=== PATIENT | male | born 1975 ===

== ENCOUNTER 2017-08-06 13:32 | Inpatient (IN) | payer MEDICAID, OTHER ==
--- NOTE | 2017-08-06 15:30 | NUR ---
NURSE ADMISSION NOTE: Pt is a 42 yo male who is developmentally disabled, hx of schizophrenia under the care of [facility]. The pt was brought to [facility] on 08/05/17, by KARLEE for making statements at home about suicide with his father's gun, which is locked up. Pt has been living with parents and it is reported that he has been off of his medication. The reports are differing as to the length of time, several days or three months. The family states he has had escalating behavior. Pt denies SI, HI, anxiety, depression, AH VH. Pt is calm and cooperative. Pt was admitted onto the unit at 1745, admission completed, oriented to unit, and assigned room and Pt ate dinner. Pt is PAZ on 72 hr hold.
[2017-08-06] MEDS ORDERED: Magnesium Hydroxide 10 mL Oral Concentration PO PRN (20:10)
[2017-08-06] MEDS ORDERED: Alum-Mag Hydrox-Simeth 30 mL Suspension PO PRN (20:15)
[2017-08-06] MEDS ORDERED: LORazepam 1 mg Tablet PO PRN (20:15)
[2017-08-06] MEDS ORDERED: Benzocaine-Menthol Lozenge 2/Pkg PO PRN (20:15)
--- NOTE | 2017-08-06 21:09 | NUR ---
Medication Note: When Pt was given HS Seroquel, Pt tried to hide the pills in his hand then dropped on the bed when staff saw them. Pt then took the medication with staff checking for cheeking. Pt monitored q15 min for safety, location and accountability.
--- NOTE | 2017-08-07 04:48 | NUR ---
nursing, nights, 11-7 s/o- has appeared to sleep after 0 during q 15 minute assessments. a- no apparent distress. p- monitor behavior/emotional state, quality, times and amount of sleep, use and effect of medication. shana
[2017-08-07 13:41] VITALS: BP 132/85; PULSE 104; RESP 16
--- NOTE | 2017-08-07 13:49 | HP ---
[address] [address] HISTORY AND PHYSICAL PATIENT: LARISA LOPEZ : 1975 MR#: [id number] ADMIT: 08/06/2017 JOB ID: [id number] IDENTIFICATION OF PATIENT: The patient is a 42-year-old male who reportedly was admitted via transfer from [facility] in [place] with noted identification of PAZ status due to status of grave disability. The patient reportedly has a long-term previous history of diagnosis of paranoid schizophrenia and per family report has refused to continue with medication interventions. CHIEF COMPLAINT: "I am willing to restart my medications and I will continue to follow up with my people." HISTORY OF PRESENT ILLNESS: As stated above the patient is a 42-year-old male who reportedly has a preexisting history of paranoid schizophrenia. Within the past month the patient reportedly had elected to discontinue his medications per family report and has had significant decompensation of care of self, increasing difficulties with paranoia, hallucinations, and threatened recently to hurt himself with a weapon. He reports that he is willing to reinitiate medications and will continue with his outpatient providers of prior. The patient reportedly has a prior history, and I have reviewed records from [facility], with hospitalization and requirements of medications in the past including Haldol and Clozaril. He is currently dispensed Seroquel most recent prescription was written as 300 mg at bedtime. However, the patient has declined and is on a reinitiation of medications, given 50 mg last evening. In meeting with myself the patient was quite paranoid, actively experiencing responses to internal stimulus. He made intermittent eye contact. He openly admitted to hearing voices. He denied any evidence of current suicidal ideation, intent, or plan, and agreed to continue with his medications with the intent to follow up with his care providers. I have discussed the possibility of initiation of an LR 90 with continuation of care through [facility]. The patient has agreed. PAST MEDICAL HISTORY: ALLERGIES: Substantial for no reported allergies. MEDICATIONS: Medications of current include Seroquel 300 mg q.h.s., however the patient discontinued medications and has agreed to reinitiate with his current hospitalization. There is no other medical history noted. I reviewed records from previous with no indication of ongoing or preexisting medical condition. PAST PSYCHIATRIC HISTORY: Substantial for the above information. SOCIAL HISTORY: Currently patient lives at home with his biological mother and father, sibling brother. 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 He reports that he did attend high school up until the 11th grade in [place] but did not graduate. He has no GED. He has never been . He reportedly has not worked since 2009. Abuse history was not reviewed. FAMILY HISTORY: Unknown. DEVELOPMENTAL HISTORY: As noted above. MENTAL STATUS EXAMINATION: General appearance: The patient was cooperative polite, but reserved and guarded. He made intermittent eye contact. He does appear to be responding to internal stimulus throughout the course of interview and openly admitted to hearing voices. His speech was minimal and concrete. His mood was neutral. Affect was guarded. Thought process shows evidence of loose and disorganized thinking, some evidence of tangential thought, and possible thought insertion. He identified at times he believes that people are controlling his thoughts. Thought content: He denied any evidence of current suicidal, homicidal ideation. He reportedly has made reference to family members about purchasing a weapon but has no weapons in the home environment. He admitted to auditory hallucinations. He does appear to be responding to internal stimulus throughout. There is evidence of visual tracking with probable visual hallucinations as well. He was alert, oriented to person, place, and time. His attention and concentration are minimal. Insight and judgment are poor. IMPRESSION: [place] I: 1. Schizophrenia, paranoid type. 2. Learning disability, not otherwise specified, by history. [place] II: Intellectual disability, mild to moderate. [place] III: None. [place] IV: Stressors are noted for significant history of mental health issues, recent refusal of medications. [place] V: Global Assessment of Functioning of 35. PLAN: 1. Recommendations for applications of LR 90 with release and return to his outpatient care providers. 2. Continuation of Seroquel 50 mg at bedtime with titration to follow. 3. Continuation of supportive care as noted with nursing staff.
--- NOTE | 2017-08-07 18:06 | NUR ---
[id number]. nurs. S: "I ate" O: Pt either in bedrm, or out on unit, did not participate in program but appeared reasonable comfortable, not making any distressed sounds. Pt not communicative with this staff , beyond above comment, pt did confirm having AHs with Dr. Pt frequently pulls shirt over his nose or covers mouth and nose with hand appears to be mumbling to self at times. Pt staring tapping thumbs together and does not want to engage. Pt eating meals no shower today. Pt has attempted to hide and not take meds last night and reportedly in past at home to check for med diversion. P:CNCP
--- NOTE | 2017-08-07 18:30 | NUR ---
[facility] Day Shift Pt maintains behavior control throughout the shift. Pt affect appears mostly flat, blunt. Pt spends most of the shift resting in his room or sitting quietly in the dining room. Pt is not social with staff or peers, and limits interactions to very brief, one-two sentence engagements. Pt appears internally preoccupied, occasionally mumbling to himself and moving in subtle, bizarre ways while seated in the dining room. Pt attended community meeting in the AM, but was unable to attend group activities. Pt attended all meals and ate approx 100% of all meals.
--- NOTE | 2017-08-08 04:43 | NUR ---
nursing, nights, 11-7 s- is it breakfast yet ? o- has appeared to sleep after 2245. up briefly at 0416 and easily returned to sleep. assessed q 15 minutes. a- no apparent distress. p- monitor behavior/emotional state, quality, times and amount of sleep, use and effect of medication. shana
--- NOTE | 2017-08-08 05:39 | NUR ---
Nursing Note Paint Spray Tender 7pm-7am Patient was in dining room at start of shift. Stayed in dining room for evening snack. He was calm and cooperative. Patient was compliant with evening meds, with no attempts at cheeking or hiding medications. After taking evening meds, patient remained in common area watching tv, went to room and was noted to be asleep at 2245. Patient slept 7.25 hours. Pt monitored q 15 minutes for safety, location and accountability.
[2017-08-08 10:39] VITALS: BP 130/80; PULSE 88; RESP 16
--- NOTE | 2017-08-08 13:35 | NUR ---
[facility] Day Shift Pt affect and behavior mostly unchanged from previous shifts. Pt maintains behavior control throughout the shift. Pt affect appears mostly flat, blunt. Pt spends most of the shift resting in his room or sitting quietly in the dining room. Pt is not social with staff or peers, and limits interactions to very brief, one-two sentence engagements. Pt appears internally preoccupied, occasionally mumbling to himself and moving in subtle, bizarre ways while seated in the dining room. Pt appeared to have a dramatic, violent coughing fit in the AM, but denied the need for intervention. Pt attended all meals and ate approx 100% of all meals.
--- NOTE | 2017-08-08 16:53 | NUR ---
Burglar Alarm Installer/Counselor: S/O: Patient slept 7.25 hours last night per staff. Patient denies S/I and H/I. He reports hearing voices. He denies visual hallucinations. This abstract writer spoke with Katlyn at [facility], , and they will help coordinate transportation and assist with discharge planning upon time of patient discharge. A: Patient is cooperative, disorganized, tangential, responding to internal stimuli, poor insight, poor judgment. P: Follow the care plan, coordinate with out-patient providers.
--- NOTE | 2017-08-08 17:37 | NUR ---
Nursing Note [id number] S: "I do hear voices". "They tell me things". O: Patient unable/unwilling to elaborate on what his voices say, but giggles several times as he was talking about them. Patient coughing loudly intermittently, one time falling to the floor making gagging noises. Patient reporting he has a tickle in his throat. Denies sore throat. Patient restless, and pacing. Appears in distress at times. Holding/pulling the hair on top of his head. Reporting neck pain/soreness, but refusing medication or ice bag. Patient reports anxiety, depression, pain, voices, but unable to rate. Denies SI/HI. Responding to internal stimuli. A: Anxious, restless, guarded, reserved and disorganized. P: Monitor for safety and response to treatment. Follow plan of care. Addendum: 08/08/17 at 1738 by REGINALD VALENCIA RN PRN's Vistaril 50 mg po for anxiety, patient unable to rate. Minimally effective, no change hair pulling/restlessness.
--- NOTE | 2017-08-08 21:44 | NUR ---
behavior: pt. in dining room, pulls shirt over his mouth while talking. Pt. talked about [employer] game and liking the [employer], smiled stated "nice talking to you". pt. took his meds cooperatively.
[2017-08-09 08:00] VITALS: BP 145/91; PULSE 82; RESP 17
--- NOTE | 2017-08-09 13:13 | PROG NOTE ---
[address] [address] PROGRESS NOTE PATIENT: LARISA LOPEZ : 1975 MR#: [id number] ADMIT: 08/06/2017 JOB ID: [id number] DATE: 08/08/2017 CHIEF COMPLAINT: "I don't know if my mom will let me come back home." HISTORY OF PRESENT ILLNESS: As stated above, the patient met with myself and his attorney recruiter to discuss disposition planning. I have recommended applications for LR 90 and the patient has been consistently agreeable with myself; however, with the attorney recruiter he showed some reluctance to engage, was unable to repeat the stipulations as agreed, and showed significant evidence of elevated anxiety. I attempted to intervene and the patient did have difficulties which continued, with putting his head down on the table, openly stating that he does not understand, and becoming increasingly frustrated. I do see this as a reflection of his limitations of cognition with noted prior history of a diagnosis of alcohol syndrome and presumption of mental retardation. The patient reportedly has had consistent services since youth and did not formally graduate from high school. The patient shows significant limited developmental features with noted impairment of social skills, limited ability to repeat sequential information, and over-activation with distraction. He has been medication compliant at this time with administration of Seroquel 100 mg q.h.s. and Vistaril 50 mg q.4 h. for anxiety last dose at 2 p.m. yesterday. He has not utilized any p.r.n. doses of Seroquel since his admission. I have discussed with the treatment team the intent of applying for LR 90 with the hope and purpose of initiating case assistant which could pursue additional resources including updated assessment of psychological functioning and cognitive functioning with possibilities of applications for an MR waiver and additional DD services. In addition, out-of-home placement certainly could be warranted based on his significant difficulties with the family unit. OBJECTIVE: On mental status exam, as noted above the patient was quite anxious on approach with his attorney recruiter. He verbally identified that he was confused, did not understand, and was unable to calm even with my interventions. This is a noted contrast of previous encounters with myself the day before in which he was very understanding and cooperative with the recommendations of a LR 90. His speech was hesitant. His affect was elevated. His mood was anxious. He denied any evidence of suicidal, homicidal ideation. He denied any evidence of acute hallucinations or delusions. He was alert, oriented to person only. His insight and judgment were deemed poor. PHYSICAL EXAMINATION: Vital signs of current: Temperature is 36.2, pulse 82, respirations 17, BP 145/91. MEDICATION REVIEW: Includes Seroquel 100 mg q.h.s., Vistaril 50 mg q.4 h. p.r.n., Seroquel 50 mg q.4 h. p.r.n. for agitation. ASSESSMENT: [place] I: 1. Schizophrenia, paranoid type, by history. 2. Learning disability, not otherwise specified, by history. [place] II: Intellectual disability, mild to moderate. [place] III: alcohol syndrome by history. [place] IV: Stressors were noted for chronic mental health issues, cognitive impairment, recent refusal of medications. [place] V: Global Assessment of Functioning of current 35. PLAN: 1. Recommendations for continuance of hearing with LR 90 hearing scheduled on Friday. 2. Recommendations for continuation of all medications noted. 3. Continuation of supportive care. 4. Initial plan of discharge to the family unit failed due to limited contact with the individuals at this time. I have agreed with the treatment team to continue his hospitalization, but do see the patient is a vulnerable adult and staff have been alerted about safety concerns for this individual. Ideally in the future he should not be a candidate for admission to a psychiatric unit due to the significant impairment and this will be forwarded to his discharge planning and followup team.
--- NOTE | 2017-08-09 13:19 | PROG NOTE ---
[address] [address] PROGRESS NOTE PATIENT: LARISA LOPEZ : 1975 MR#: [id number] ADMIT: 08/06/2017 JOB ID: [id number] DATE: 08/09/2017 CHIEF COMPLAINT: "I like it here. The people are nice." HISTORY OF PRESENT ILLNESS: As stated above the patient openly identified that he is feeling comfortable on the unit. He was seen out in the Day Area consistently yesterday afternoon. He at times does return to his room when he is tired. He made intermittent eye contact with myself initially in group activities but was able to converse openly with myself later. Per staff report, the patient remains anxious, guarded, and at times disorganized. He was given doses of Vistaril yesterday afternoon for some heightened levels of anxiety. Contact has been made with Katlyn at [facility] and they are assisting in transportation and discharge planning on Friday. OBJECTIVE: On mental status exam, the patient was cooperative, polite. He does show some evidence of hyperkinesis at times but he is redirectable. He denies any evidence of acute distress. His speech was of normal tone, frequency, and volume. His mood is mildly anxious. His affect is congruent. His thought process showed no evidence of racing thoughts, flight of ideas, loose or disorganized thinking. Thought content: Denied any evidence of suicidal, homicidal ideation. No evidence of paranoia. He denies any evidence of current auditory or visual hallucinations; however, he did admit to nursing staff with no definition that he hears voices that tell him to do things. He was alert, oriented to person, place. His attention and concentration intact. Insight and judgment are poor. PHYSICAL EXAMINATION: Vital signs of current: Temperature is 36.2, pulse is 82, respirations 17, BP 145/91. MEDICATION REVIEW: Includes Seroquel 100 mg q.h.s., as well as p.r.n. doses of 50 mg q.4 h. for agitation. He has not received any at this time. Vistaril 50 mg q.4 h. p.r.n., which he received yesterday afternoon. ASSESSMENT: [place] I: 1. Schizophrenia, paranoid type by history. However, this is questionable at this time. 2. Learning disability, not otherwise specified. [place] II: Intellectual disability, mild to moderate. [place] III: alcohol syndrome. [place] IV: Stressors are noted for chronic history of mental health issues, refusal of medications, cognitive impairment. [place] V: Global Assessment of Functioning of current 37. PLAN: 1. Recommendations for continuation of supportive care. 2. Continuation of all medications noted. 3. Recommendations for plan of discharge on Friday with applications filed for LR 90. If the court is unwilling to implement, the patient will be discharged with recommendations of followup interventions including reassessment of cognitive functioning, possibilities of applications for MR waiver.
--- NOTE | 2017-08-09 16:27 | NUR ---
Instructor Substitute Cosmetology/Counselor S/O: Patient has been out on the unit, watching movies and interacting with other staff. When approached, patient becomes euphoric, laughing uncontrollably. Patient pulls shirt over his mouth when talking. Patient did participate in groups. A: Patient is mostly cooperative, disorganized, tangential, responding to internal stimuli, poor insight, poor judgment. P: Follow care plan and coordinate with outpatient providers.
--- NOTE | 2017-08-09 16:41 | NUR ---
Observations 0700 to 1900 Pt attended and participated in community meeting. Pt attended recreational activities. Pt ate a snack. Pt spends free time in common areas watching TV and interacting with peers. Pts affect is euphoric and he is difficult to converse with. Pt maintained behavioral control. Breakfast: 100%. Lunch: 100%. Staff completed 15 min close observations as ordered.
--- NOTE | 2017-08-09 17:49 | NUR ---
Nursing Note [id number] S: "I want to take my medications so I can get better". "I would like to get a job and live on my own again". O: Patient visible on unit, interacting with a new male patient. Patient seems distracted at times and loses his train of thought mid-sentence, laughs intermittently at inappropriate times, but denies auditory hallucinations. Reports anxiety-unable to rate. A: Restless, appears internally preoccupied, tangential, disorganized and cooperative. P: Monitor for safety and response to treatment. Follow plan of care.
--- NOTE | 2017-08-09 21:33 | NUR ---
NIGHT NURSE NOTE [id number]: Pt was watching TV at the beginning of the shift, with several peers. Pt kept the neckline of his shirt in his mouth and frequently pulls on the top of his hair. Pt appropriately asked for HS meds, then stayed up for snack. Pt monitored q15 min for safety, location and accountability.
[2017-08-10 09:57] VITALS: BP 138/88; PULSE 107; RESP 14
--- NOTE | 2017-08-10 14:21 | PROG NOTE ---
[address] [address] PROGRESS NOTE PATIENT: LARISA LOPEZ : 1975 MR#: [id number] ADMIT: 08/06/2017 JOB ID: [id number] DATE: 08/10/2017 CHIEF COMPLAINT: "I am having a good day, I have got a good friend." This is per patient report. HISTORY OF PRESENT ILLNESS: As stated above, the patient was seen in the day area sitting with male peer. He reportedly continues to participate in group activities and has shown no evidence of agitation or concerns of imminent danger to self or others. The patient is aware that we are attempting to consolidate a plan for discharge early next week with aftercare including LR 90 through a local [facility] in [place]. The patient reports that he has been cooperating with medication administration. He has continued with doses of Seroquel 100 mg q.h.s., and shows continuation of significant developmental delay and limited social understanding. OBJECTIVE: On mental status exam, he was bright, cooperative, interactive. He maintained good eye contact. His speech is of normal tone, frequency, and volume. His mood is neutral. Affect was congruent. His thought process showed no evidence of racing thoughts, flight of ideas, loose or disconnected thinking. Thought content: No evidence of suicidal or homicidal ideation. No evidence of paranoia. No evidence of hallucinations or delusions. He was alert, oriented to time and place. Attention and concentration intact. Insight and judgment are poor. PHYSICAL EXAM: Vital signs of current: Temperature is 36.3, pulse 107, respirations 14, BP 138/88. MEDICATION REVIEW: Includes: 1. Seroquel 100 mg q.h.s. 2. Vistaril 50 mg q.4 h. p.r.n. anxiety, last dose on the at 2 p.m. ASSESSMENT: [place] I. 1. Schizophrenia, paranoid type by history. 2. Learning disability, not otherwise specified. [place] II. Intellectual disability, moderate to severe. [place] III. alcohol syndrome. [place] IV. Stressors are noted for disposition planning, limited services in the outpatient sector. [place] V. Global Assessment of Functioning current 35. PLANS: 1. Recommendations for proceeding into LR 90 with plan of discharge on [place] with continuation of outpatient access of care. 2. Continuation of all medications. MTDD
--- NOTE | 2017-08-10 15:14 | NUR ---
Health Program Manager/Counselor S:"I am good." O: Patient denies any SI or HI, no AVH, and did not rate anxiety or depression. Patient participated in group briefly. He has bitten holes into the neckline of his t-shirt. Patient appears to have made friends with another patient on the unit. A:Patient is easily distracted by other patients. He is disorganized, internally preoccupied, labile. P:Follow care plan and coordinate with outpatient providers.
--- NOTE | 2017-08-10 16:41 | NUR ---
Observations 0700 - 1900 Pt affect and mood was flat, guarded, withdrawn and childlike. Pt was out of his room most of the shift. Pt was pleasant, polite and cooperative when approached. Pt maintained behavior throughout the shift. Pt attended meals in D.R. and ate 100% of his meals. Pt ate snack. Pt attended unit activities and played wii with peers. Pt attended community meeting and set a daily goal. Pt was social with select peers. Pt did some writing while sitting at the table in D.R. Pt was observed every 15 minutes through the shift as ordered.
--- NOTE | 2017-08-10 16:58 | NUR ---
Nursing Note [id number] S: "I want to be like that-I want to make good choices". O: Patient continues to be visible on unit. Interacting appropriately with staff and peers. Patient appears more focused, and organized, able to have a conversation and complete his thoughts. Continues to giggle at in appropriate times-but this too is decreasing in frequency. Patient noting erratic behavior of a new patient on unit, stating he doesn't make sense. A: Brighter affect, making future plans, increased eye contact, appropriate, insight improving. P: Monitor for safety and response to treatment. Follow plan of care.
--- NOTE | 2017-08-11 05:44 | NUR ---
Nursing Note Cutter Barrel Drum 7pm-7am Patient out in common area watching a movie and evening snack. Calm and cooperative with staff. Patient was compliant with evening medications. He finished the movie and went to his room. Patient was noted to be in bed asleep at 2215 and through the rest of the night. Pt monitored q 15 minutes for safety, location and accountability.
[2017-08-11 11:55] VITALS: BP 122/79; PULSE 101; RESP 16
--- NOTE | 2017-08-11 14:04 | NUR ---
Observations 0700 - 1900 Pt affect and mood was same as previous days but a little brighter and more social. Pt was out of his room most of the shift. Pt was pleasant, polite and cooperative when approached. Pt maintained behavior throughout the shift. Pt attended meals in D.R. and ate 100% of his meals. Pt ate snack. Pt attended unit activities. Pt set a daily goals 1. take a shower 2. talk to Mom. Pt was social with select peers. Pt talked w public works manager for about an hour regarding court tomorrow. Pt was observed every 15 minutes through the shift as ordered.
--- NOTE | 2017-08-11 15:41 | PROG NOTE ---
[address] [address] PROGRESS NOTE PATIENT: LARISA LOPEZ : 1975 MR#: [id number] ADMIT: 08/06/2017 JOB ID: [id number] DATE: 08/11/2017 CHIEF COMPLAINT: "So, I get to go home tomorrow." This is per patient report. HISTORY OF PRESENT ILLNESS: As stated above, the patient did identify that he is hoping that he can be discharged and I have confirmed that the intent is to file for LR 90 with plan of discharge. Conversations have been held via case planner with contact with [facility], which was previously connected with the patient's care. It is my understanding that they are coordinating a possible plan of transition and transfer with discharge planning. OBJECTIVE: On mental status exam, he continues to be very child-like and needs redirection at times. His speech is of normal tone, frequency, and volume. His mood is neutral. Affect was congruent. His thought process showed no evidence of racing thoughts, flight of ideas, loose or disconnected thinking. Thought content: He denied any evidence of current suicidal, homicidal ideation. No evidence of active hallucinations, delusions. He was alert, oriented to time and place. Attention and concentration intact. Memory intact in the short term, buttermaker, recent. Insight and judgment are fair. PHYSICAL EXAM: Vital signs, current: Temperature is 36.5, pulse 101, respirations 16, BP 122/79. MEDICATION REVIEW: Includes: 1. Seroquel 100 mg q.h.s. 2. Seroquel 50 mg q.4 h. p.r.n. 3. Vistaril 50 mg q.4 h. p.r.n. ASSESSMENT: [place] I. Learning disability, not otherwise specified. [place] II. Intellectual disability, moderate/severe. [place] III. alcohol syndrome. [place] IV. Stressors are noted for long-term disposition planning including applications for [facility] bhatt. Limited services in the outpatient sector. [place] V. Global Assessment of Functioning current 35. PLAN: 1. Recommendations for proceeding to LR 90 with plan of discharge on Friday with continuation of outpatient care with [facility]. 2. Recommendations for updated comprehensive neuropsychological evaluation with strong evidence to support limited functioning capabilities. Re-evaluation for DD MR waiver certainly should be pursued; however, this will be deferred to outpatient followup. 3. Continuation of Seroquel 100 mg q.h.s. and 50 mg p.r.n. due to the patient's significant history of disruptive behavior in the past.
--- NOTE | 2017-08-11 16:49 | NUR ---
Retail Receiving Clerk/Counselor S/O: Patient denies any SI or HI, no AVH. Becomes distracted and starts laughing. A:Patient is still easily distracted by other patients, and is very disruptive when he sees staff speaking to other patients. He is disorganized, internally preoccupied, labile. P:Follow care plan and coordinate with outpatient providers.
--- NOTE | 2017-08-11 18:09 | NUR ---
Nursing Dayshift: S: "That's so funny!" O: Patiently easily laughing with peers today. At times will laugh inappropriately when a peer is stating that it was not funny. Generally pulls his shirt-neck over his mouth when laughing. Approachable. Good appetite at meals and snacks. Has been out of his room much of the day. A: Social. Compliant. P: CPOC. Monitor mood and behavior.
--- NOTE | 2017-08-12 06:12 | NUR ---
Nursing Note Automatic Lehr Operator 7pm-7am Patient out in common area watching tv at start of shift. Calm and cooperative with staff. Patient was compliant with evening medications. Seroquel order was previously for four-25 mg tablets, but was changed to one-100 mg tablet per pharmacy. Patient asked what pill he was given and was informed it was the same medication, but the tablet strength had changed. He then took medication without issue and went to bed. He was noted to be asleep from [id number] and [id number]. Pt monitored q 15 minutes for safety, location and accountability.
[2017-08-12] MEDS ORDERED: QUET25TA73 PO (10:19)
[2017-08-12] MEDS ORDERED: QUET100T69 PO (10:19)
--- NOTE | 2017-08-12 10:19 | PCM.DIMED ---
Discharge Instructions Date of Service Aug 12, 2017 Dates of Hospitalization Aug 06, 2017 at 17:44 Discharge Diagnosis Discharge Diagnosis Learning DO NOS Intellectual Disability Moderate FAS Diet Discharge Diet: No restrictions Activity Discharge Activity: No restrictions Freddy Gracia DO Aug 12, 2017 10:19
[2017-08-12 11:23] VITALS: BP 131/80; PULSE 78
--- NOTE | 2017-08-12 14:10 | NUR ---
Discharge Patient ambulated from unit, accompanied by family who will return patient to [place]. Patient exhibited increased anxiety today prior to discharge-demonstrated by nose pulling and increased outbursts of unprovoked giggling. Patient given 50 mg Seroquel prior to discharge. Positive statements of future reference made-patient hoping to become stable enough to obtain a job and live independently. Discharge instructions/medications reviewed with patient prior to discharge. All questions addressed. Patient belongings, discharge instructions and prescriptions in hand. Patient agreeable to discharge, all paperwork signed.
--- NOTE | 2017-08-12 14:42 | DIS ---
[address] [address] DISCHARGE SUMMARY PATIENT: LARISA LOPEZ : 1975 MR#: [id number] ADMIT: 08/06/2017 JOB ID: [id number] DIS: ADMITTING DIAGNOSES: Include: [place] I. 1. Schizophrenia, paranoid type by history. 2. Learning disability, not otherwise specified. [place] II. Intellectual disability, mild to moderate. [place] III. alcohol syndrome. [place] IV. Stressors were noted for significant history of mental health issues, recent refusal of medications, limited cognitive capabilities. [place] V. Global Assessment of Functioning current 35. DISCHARGE DIAGNOSES: Include: [place] I. 1. Learning disability, not otherwise specified. [place] II. Intellectual disability, mild to moderate. [place] III. alcohol syndrome. [place] IV. Stressors were noted for significant history of mental health issues, recent refusal of medications, limited cognitive capabilities. [place] V. Global Assessment of Functioning current 35. REASON FOR ADMISSION: Patient was a 42-year-old male admitted via transfer from [facility] with noted PAZ status due to concern of grave disability and significant previous history of paranoid schizophrenia and discontinuation of medications. During the course of hospitalization, patient's history was reviewed from previous care providers at [facility] with previous identified trials of doses of Haldol, Clozaril, and most recent usage of Seroquel. In further review and on patient interaction, it was noted that the patient did have a prior diagnosis of alcohol syndrome which we were unaware of prior to acceptance of the patient to the unit. It was clear the patient had significant cognitive limitations with significant child-like mannerisms, inability to comprehend, and recommendations were to pursue LR 90 with conditional release, which was later invalidated based on the patient's absence of characteristic features of schizophrenia. It was felt that the patient's primary presentation was that of intellectual disability, and recommendations were to pursue further services including an MR waiver and additional DD services. During hospital course, patient did remain on low-dose therapies of Seroquel 100 mg q.h.s. for a significant history of insomnia and mild agitation. He did periodically admit to hearing voices that reminded him of his parents and stating that he was able to actually block them by keeping active. It was felt that the patient did not meet full criteria of schizophrenia based on observation, participation, and further gathering of information, and this was discussed with the treatment team, care providers in the [facility], and the family members. It was felt that the patient would benefit from further evaluation through local psychologist in the [facility] and re-applications of services through DD waiver interventions. OBJECTIVE: On mental status exam, the patient was cooperative, polite. He denied any evidence of acute distress. His speech was of normal tone, frequency, and volume. His mood was neutral. Affect was guarded. His thought process showed no evidence of racing thoughts, flight of ideas, loose or disconnected thinking. Thought content: He denied any evidence of current suicidal or homicidal ideation. There was no evidence of active hallucinations, delusions, other than having internal voices reflecting his parents. His insight and judgment were deemed poor. PLANS: 1. Recommendations to discharge to the care of the family. 2. Recommendations for continuation of medications including Seroquel 100 mg q.h.s., 50 mg q.4 h. p.r.n. for agitation. 1 month supply NRF Reason for usage: History of insomnia and disruptive behaviors. 3. Recommendations for continuation of pursuit of DD waiver, MR miller, services including updated psychological testing to validate the patient's level of impairment with pursuit of possible halfway assistance and other community-based services for the intellectually impaired. 4. Follow up appointment on 08/18/17 at [facility] for case management intake per Estee mckeon. ROSSANA
--- NOTE | 2017-08-12 15:02 | NUR ---
Power Generation Equipment Repairer/Counselor S/O: Patient denies any SI or HI, no AVH, no anxiety or depression. Patient has been out on the unit, watching tv. A: Patient has been discharge to the care of his family, and has follow up appts. with [facility], tomorrow, 08/13/17 at 11am. He has been given all necessary discharge paperwork and a safety plan. P: Follow discharge instructions.
== END 2017-08-12 14:10 | disposition home or self-care (01) | DRG 884 ==
LOC: MHC 17:44
PROVIDERS: ADMIT Psychiatry & Neurology Psychiatry; ATTEND Psychiatry & Neurology Psychiatry
DX: F71 Moderate intellectual disabilities (principal); R44.0 Auditory hallucinations; F81.9 Developmental disorder of scholastic skills, unspecified; Q86.0 Fetal alcohol syndrome (dysmorphic)